=== PATIENT | female | born 1970 | race Caucasian/White ===

== ENCOUNTER 2018-05-19 09:53 | Outpatient (CLI) | payer OTHER | END 2018-05-19 17:00 | disposition home or self-care (01) | LOC: SONOGRAMA 09:53 → MAMO-SONO 10:15 → SONOGRAMA 17:00 | DX: N84.0 Polyp of corpus uteri (principal); E55.9 Vitamin D deficiency, unspecified; N60.11 Diffuse cystic mastopathy of right breast; N60.12 Diffuse cystic mastopathy of left breast; E66.8 Other obesity; E28.2 Polycystic ovarian syndrome; D25.1 Intramural leiomyoma of uterus; D28.0 Benign neoplasm of vulva; N63.10 Unspecified lump in the right breast, unspecified quadrant; N63.20 Unspecified lump in the left breast, unspecified quadrant ==